=== PATIENT | male | born 1965 | race American Indian/Alaskan Native ===

== ENCOUNTER 2022-02-12 18:58 | Emergency (ER) | payer MEDICARE ==
[2022-02-13 00:35] VITALS: BP 166/105
[2022-02-13] MEDS ORDERED: IBUPROFEN 600 MG TAB PO ONE (01:06)
[2022-02-13] MEDS ORDERED: TETANUS,DIPH,PERTUSS(ACELL) VACCINE 0.5 ML SYRINGE IM ONE (01:06)
[2022-02-13] MEDS ORDERED: HYDROcodone/ACETAMINOPHEN 5-325 MG TAB PO ONE (01:06)
[2022-02-13] MEDS ORDERED: ONDANSETRON 4 MG ODT TAB PO ONE (01:06)
[2022-02-13] MEDS ORDERED: LIDOCAINE-MPF (1%) 10 MG/1 ML VIAL 5 ML INFILTRATI ONE (01:07)
--- NOTE | 2022-02-13 02:06 | XRay Report ---
RIGHT KNEE 3 VIEWS INDICATION / CLINICAL INFORMATION: Pain in right knee. COMPARISON: None available. FINDINGS: BONES and JOINT(S): No acute fracture or subluxation. No significant arthritis. SOFT TISSUES: No significant abnormality. ADDITIONAL FINDINGS: None. IMPRESSION: 1. No acute findings. Signer Name: Jose De Jesus Shah MD Signed: 02/13/2022 2:02 AM Workstation Name: [id number]
--- NOTE | 2022-02-13 04:19 | Emergency Department Report ---
ED Fall HPI - General Chief Complaint: Wound/Laceration Stated Complaint: CUT ON RIGHT SIDE MOUTH Source: patient Mode of arrival: Ambulatory - History of Present Illness Initial Comments: Patient is a 56-year-old -[place] male with a history of hypertension and gout who presents to the ED with complaint of acute onset painful anterior right knee abrasions and right knee pain as well as bleeding in the upper lip laceration wound after he tripped on a gas pump liver and fell down hitting his mouth against his own vehicle bumper and landing on his right knee about 4 hours ago. Patient states that he is not up-to-date with tetanus vaccination. Patient denies loss of consciousness, dizziness, syncope, chest pain, seizures, numbness and tingling or weakness of lower extremities bilaterally, neck pain, head injury, nausea and vomiting or headache. 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 denies: neck pain, numbness, weakness, chest paint, shortness of breath, abdominal pain, hematuria, unable to walk, lightheaded, vertigo, confusion - Related Data Previous Rx's Medication Instructions Recorded Last Taken Type Ibuprofen [Motrin] 800 mg PO Q8HR PRN #30 tablet 02/13/22 Unknown Rx cephALEXin [Keflex] 500 mg PO Q8HR #30 cap 02/13/22 Unknown Rx traMADoL [Ultram] 50 mg PO Q6HR PRN #12 tablet 02/13/22 Unknown Rx Allergies Allergy/AdvReac Type Severity Reaction Status Date / Time No Known Allergies Allergy Unverified 02/12/22 20:34 ED Review of Systems ROS: Stated complaint: CUT ON RIGHT SIDE MOUTH Other details as noted in HPI Constitutional: denies: chills, fever Eyes: denies: eye pain, eye discharge, vision change ENT: other (bleeding painful inner upper lip laceration). denies: ear pain, throat pain Respiratory: denies: cough, shortness of breath, wheezing Cardiovascular: denies: chest pain, palpitations Endocrine: no symptoms reported Gastrointestinal: denies: abdominal pain, nausea, vomiting, diarrhea Genitourinary: denies: urgency, dysuria Musculoskeletal: arthralgia (right knee pain). denies: back pain, joint swelling Skin: other (abrasion of right knee). denies: rash, lesions Neurological: denies: headache, weakness, paresthesias Psychiatric: denies: anxiety, depression Hematological/Lymphatic: denies: easy bleeding, easy bruising ED Past Medical Hx - Past Medical History Previous Medical History?: Yes Hx Hypertension: Yes Additional medical history: GOUT, PRE-DIABETIC - Surgical History Past Surgical History?: No - Medications Home Medications: Home Medications Medication Instructions Recorded Confirmed Last Taken Type Ibuprofen [Motrin] 800 mg PO Q8HR PRN #30 tablet 02/13/22 Unknown Rx cephALEXin [Keflex] 500 mg PO Q8HR #30 cap 02/13/22 Unknown Rx traMADoL [Ultram] 50 mg PO Q6HR PRN #12 tablet 02/13/22 Unknown Rx ED Physical Exam - General Limitations: No Limitations General appearance: alert, in no apparent distress - Head Head exam: Present: normocephalic, normal inspection - Eye Eye exam: Present: normal appearance, PERRL, EOMI Pupils: Present: normal accommodation - ENT ENT exam: Present: mucous membranes moist, other (Bleeding 4 cm inner upper lip laceration) - Neck Neck exam: Present: normal inspection, full ROM. Absent: tenderness - Respiratory Respiratory exam: Present: normal lung sounds bilaterally. Absent: respiratory distress, wheezes, rales, rhonchi, stridor, chest wall tenderness, accessory muscle use, decreased breath sounds, prolonged expiratory - Cardiovascular Cardiovascular Exam: Present: regular rate, normal rhythm, normal heart sounds. Absent: systolic murmur, diastolic murmur, rubs, gallop - GI/Abdominal GI/Abdominal exam: Present: soft, normal bowel sounds. Absent: tenderness, guarding, rebound, hyperactive bowel sounds, hypoactive bowel sounds, organomegaly - Extremities Exam Extremities exam: Present: normal inspection, full ROM, tenderness (Palpable right knee tenderness; mild anterior right knee abrasion), normal capillary refill - Back Exam Back exam: Present: normal inspection, full ROM. Absent: tenderness, CVA tenderness (L), muscle spasm, paraspinal tenderness, vertebral tenderness, rash noted - Neurological Exam Neurological exam: Present: alert, oriented X3, CN II-XII intact, normal gait, reflexes normal - Psychiatric Psychiatric exam: Present: normal affect, normal mood. Absent: suicidal ideation - Skin Skin exam: Present: warm, dry, intact, normal color, abrasion (Anterior right knee abrasion wounds). Absent: rash ED Course Vital Signs 02/12/22 02/13/22 20:29 00:34 Temperature 98.3 F Pulse Rate 82 68 Respiratory 18 14 Rate Blood Pressure 182/108 Blood Pressure 166/105 [Left] O2 Sat by Pulse 98 99 Oximetry - Laceration /Wound Repair Anterior Face Wound Location: mouth (Inner upper lip) Wound Length (cm): 4 Wound's Depth, Shape: into muscle, irregular, flap Wound Explored: contaminated Irrigated w/ Saline (ccs): 300 Betadine Prep?: No Anesthesia: 1% Lidocaine Volume Anesthetic (ccs): 5 Wound Debrided: extensive Wound Repaired With: sutures Layer Closure?: No Deep Layer Suture Size/Type: chromic Number Deep Layer Sutures: 8 Sterile Dressing Applied?: No ED Medical Decision Making - Radiology Data Radiology results: report reviewed, image reviewed [address] [address] XRay Report Signed Patient: CECIL SANCHEZ MR#: [id number] 2017 : 1965 Acct:[id number] Age/Sex: 56 / M ADM Date: 02/12/22 Loc: ED Attending Dr: Ordering Physician: ARBEN KIMBALL Date of Service: 02/13/22 Procedure(s): XR knee 3V RT Accession Number(s): [id number] cc: ARBEN KIMBALL Fluoro Time In Minutes: RIGHT KNEE 3 VIEWS INDICATION / CLINICAL INFORMATION: Pain in right knee. COMPARISON: None available. FINDINGS: BONES and JOINT(S): No acute fracture or subluxation. No significant arthritis. SOFT TISSUES: No significant abnormality. ADDITIONAL FINDINGS: None. IMPRESSION: 1. No acute findings. Signer Name: Jose De Jesus Shah MD Signed: 02/13/2022 2:02 AM Workstation Name: [id number] Transcribed By: [place] Dictated By: Jose De Jesus Shah MD Electronically Authenticated By: Jose De Jesus Shah MD Signed Date/Time: 02/13/22201 DD/ 1 TD/TT: - Medical Decision Making This is a 56-year-old -[place] male with a history of hypertension and gout who presents to the ED with complaint of acute onset painful anterior right knee abrasions and right knee pain as well as bleeding in the upper lip laceration wound after he tripped on a gas pump liver and fell down hitting his mouth against his own vehicle bumper and landing on his right knee about 4 hours ago. Patient states that he is not up-to-date with tetanus vaccination. In the ED, patient is alert and oriented x3 and is not in any distress. Right knee x-ray showed no acute fractures or subluxations. Patient was treated for pain in the ED and also received booster tetanus vaccination. The inner upper lip laceration was sutured per protocol and the patient tolerated procedure well. Patient was therefore discharged home on pain medications after the right knee was splinted with Christoph wrap and the abrasion wound cleaned. Patient was discharged home on pain medications and oral antibiotics and advised to follow- up with his primary care physician in 5 to 7 days for reevaluation or return to the ED immediately if symptoms get worse. - Differential Diagnosis knee sprain; knee contusion; knee abrasion; knee fracture; lip laceration Critical care attestation.: If time is entered above; I have spent that time in minutes in the direct care of this critically ill patient, excluding procedure time. ED Disposition Clinical Impression: Abrasion, right knee, initial encounter Laceration of intraoral region without complication Qualifiers: Encounter type: initial encounter Qualified Code(s): S01.512A - Laceration without foreign body of oral cavity, initial encounter Sprain of right knee Qualifiers: Encounter type: initial encounter Involved ligament of knee: unspecified ligament Qualified Code(s): S83.91XA - Sprain of unspecified site of right knee, initial encounter Disposition: 01 HOME / SELF CARE / HOMELESS Is pt being admited?: No Does the pt Need Aspirin: No Condition: Stable Instructions: Knee Sprain, Adult, [id number], Laceration Care, Adult, [id number], Mouth Laceration, [id number], Abrasion, [id number], Sutured Wound Care, [id number] Additional Instructions: Right knee x-ray showed no acute fractures or subluxations. Therefore take medication with food, drink plenty of fluids, follow-up with your primary care physician in 7 to 10 days for reevaluation. Return to the ED immediately if symptoms get worse. Prescriptions: cephALEXin [Keflex] 500 mg PO Q8HR #30 cap Ibuprofen [Motrin] 800 mg PO Q8HR PRN #30 tablet PRN Reason: Pain , Severe (7-10) traMADoL [Ultram] 50 mg PO Q6HR PRN #12 tablet PRN Reason: Pain Referrals: JENNIFER RENTERIA MD [Primary Care Provider] - 7-10 days Time of Disposition: 04:22 Print Language: CITIZEN OF [place]
== END 2022-02-13 04:35 | disposition home or self-care (01) ==
LOC: ED 18:58
DX: S01.512A Laceration without foreign body of oral cavity, initial encounter (principal); S83.91XA Sprain of unspecified site of right knee, initial encounter; X58.XXXA Exposure to other specified factors, initial encounter; Y93.89 Activity, other specified; Y92.89 Other specified places as the place of occurrence of the external cause; Y99.8 Other external cause status
CPT/HCPCS: 12052; 73562; 90471; 90715; 99283; J3490; 99284; Q0162